=== PATIENT | female | born 1990 | race Caucasian/White ===

== ENCOUNTER 2016-10-17 22:23 | Emergency (ER) | payer BC ==
[2016-10-17 22:51] VITALS: BP 136/86
[2016-10-17] MEDS ORDERED: Ondansetron 4 MG/2 ML SDV IVPUSH ONE (22:52)
[2016-10-17] MEDS ORDERED: Sodium Chloride 0.9% 1,000 ML IV SCH (23:00)
[2016-10-17] MEDS: Sodium Chloride 0.9% 10 ML Syringe FLUSH PRN (23:24)
[2016-10-18] MEDS ORDERED: Metoclopramide 10 MG/2 ML SDV IVPUSH ONE (00:53)
[2016-10-18] MEDS ORDERED: Ketorolac 30 MG/ML SDV IVPUSH ONE (00:57)
[2016-10-18] MEDS ORDERED: Ketorolac 30 MG/ML SDV IVPUSH SCH (01:00)
[2016-10-18] MEDS ORDERED: Sodium Chloride 0.9% 1,000 ML IV SCH (01:00)
--- NOTE | 2016-10-18 01:47 | EDM.PDOC ---
ED HPI GENERAL MEDICAL PROBLEM - General Chief Complaint: Abdominal Pain Stated Complaint: LOWER RIGHT SIDE PAIN Time Seen by Provider: 10/17/16 22:44 Source of Information: Reports: Patient, RN Notes Reviewed - History of Present Illness INITIAL COMMENTS - FREE TEXT/NARRATIVE: 26 -year-old female comes in with nausea, right lower abdominal and right flank discomfort. This came on earlier in the day about 8-10 hours prior to arrival. The pain has been worsening with fairly severe discomfort right flank right lower abdomen on arrival to ED. She did have diarrhea initially that lasted about 1-2 hours. Appetite has been diminished the remainder of today. She did try eat some dinner around 4 hours ago. That did not cause further diarrhea but did increase the discomfort and nausea. She's had chills with this, no definite fever. Voiding symptomatology. She has had previous cholecystectomy but still does have her appendix. Right Lower Abdominal Pain Score (Numeric/FACES): 8 - Related Data Allergies Allergy/AdvReac Type Severity Reaction Status Date / Time azithromycin Allergy Mouth Sores Verified 10/17/16 22:32 [From Zithromax Z-Gerardo] cephalexin Allergy Redness Verified 10/17/16 22:32 milk Allergy Other Verified 10/17/16 22:32 peanut Allergy Other Verified 10/17/16 22:32 Penicillins Allergy Facial Verified 10/17/16 22:32 Swelling Pertussis Vaccines Allergy Cannot Verified 10/17/16 22:32 Remember Sulfa (Sulfonamide Allergy Hives Verified 10/17/16 22:32 Antibiotics) cefaclor [From Ceclor] AdvReac Joint Pain Verified 10/17/16 22:32 clarithromycin [From Biaxin] AdvReac Nausea and Verified 10/17/16 22:32 Vomiting eggs Allergy Other Uncoded 10/17/16 22:32 Home Meds: Home Meds PNV95/Ferrous Fumarate/FA [ Tablet] 1 tab PO DAILY 07/24/14 [History] Insulin Detemir [Levemir] 10 unit SUBCUT DAILY 01/02/15 [History] Ciprofloxacin HCl [Cipro] 500 mg PO BID #7 tablet 10/18/16 [Rx] Ondansetron [Zofran ODT] 4 mg PO Q6H PRN #7 tab.dis 10/18/16 [Rx] Past Medical History - Past Health History Medical/Surgical History: Denies Medical/Surgical History Social & Family History - Tobacco Use Smoking Status *Q: Never Smoker Years of Tobacco use: 10 Packs/Tins Daily: 1 Used Tobacco, but Quit: Yes Month Tobacco Last Used: 04/2014 Second Hand Smoke Exposure: No - Recreational Drug Use Recreational Drug Use: No ED ROS GENERAL - Review of Systems Review Of Systems: See Below Constitutional: Denies: Fever, Chills, Diaphoresis HEENT: Reports: No Symptoms Respiratory: Denies: Shortness of Breath, Cough Cardiovascular: Denies: Chest Pain GI/Abdominal: Reports: Abdominal Pain, Diarrhea, Nausea. Denies: Vomiting : Reports: No Symptoms Musculoskeletal: Reports: Back Pain Skin: Reports: No Symptoms (Primarily right flank area) Neurological: Reports: No Symptoms ED EXAM, GI/ABD - Physical Exam Exam: See Below General Appearance: Alert, Moderate Distress Eyes: Bilateral: Normal Appearance Throat/Mouth: Normal Inspection, Normal Oropharynx Head: No: Facial Swelling Neck: Supple, Full Range of Motion. No: Lymphadenopathy (L), Lymphadenopathy (R ) Respiratory/Chest: No Respiratory Distress, Lungs Clear, Normal Breath Sounds Cardiovascular: Tachycardia GI/Abdominal Exam: Soft, Rebound (Mild), Tender. No: Guarding (Right lower quadrant) Back Exam: CVA Tenderness (R) Extremities: Normal Inspection. No: Pedal Edema, Leg Pain Neurological: Alert, Oriented, No Motor/Sensory Deficits Skin Exam: Warm, Dry, Normal Color, No Rash Course - Vital Signs Last Recorded V/S: Last Vital Signs Temp 98.1 F 10/17/16 22:35 Pulse 113 H 10/17/16 22:35 Resp BP 136/86 10/17/16 22:35 Pulse Ox 97 10/17/16 22:35 - Orders/Labs/Meds Orders: Active Orders 24 hr Category Date Time Status Peripheral IV Care [RC] . DIRECTED Care 10/17/16 22:52 Active Abdomen Pelvis w Cont [CT] Stat Exams 10/18/16 00:54 Taken Sodium Chloride 0.9% [Normal Saline] 1,000 ml Med 10/18/16 01:00 Active IV ASDIRECTED Sodium Chloride 0.9% [Normal Saline] 1,000 ml Med 10/17/16 23:00 Active IV ONETIME Sodium Chloride 0.9% [Saline Flush] Med 10/17/16 22:52 Active 10 ml FLUSH ASDIRECTED PRN Peripheral IV Insertion Adult [OM.PC] Stat Oth 10/17/16 22:51 Ordered Medication Orders Sodium Chloride (Normal Saline) 1,000 mls @ 999 mls/hr IV ONETIME BLAKE Last Admin: 10/17/16 23:23 Dose: 999 mls/hr Sodium Chloride (Normal Saline) 1,000 mls @ 150 mls/hr IV ASDIRECTED BLAKE Last Admin: 10/18/16 01:07 Dose: 150 mls/hr Sodium Chloride (Saline Flush) 10 ml FLUSH ASDIRECTED PRN PRN Reason: Keep Vein Open Last Admin: 10/18/16 03:10 Dose: 10 ml Admin: 10/17/16 23:24 Dose: 10 ml Labs: Laboratory Tests 10/17/16 10/17/16 10/17/16 Range/Units 23:10 23:10 23:10 WBC 13.90 H (3.98-10.04) K/mm3 RBC 4.63 (3.98-5.22) M/mm3 Hgb 12.5 (11.2-15.7) gm/L Hct 39.1 (34.1-44.9) % MCV 84.4 (79.4-94.8) fl MCH 27.0 (25.6-32.2) pg MCHC 32.0 L (32.2-35.5) g/dl RDW Std Deviation 41.2 (36.4-46.3) fL Plt Count 400 H (182-369) K/mm3 MPV 9.0 L (9.4-12.3) fl Neut % (Auto) 67.4 (34.0-71.1) % Lymph % (Auto) 22.7 (19.3-51.7) % [place] % (Auto) 7.3 (4.7-12.5) % Eos % (Auto) 2.3 (0.7-5.8) Baso % (Auto) 0.2 (0.1-1.2) % Neut # (Auto) 9.35 H (1.56-6.13) K/mm3 Lymph # (Auto) 3.16 (1.18-3.74) K/mm3 [place] # (Auto) 1.02 H (0.24-0.36) K/mm3 Eos # (Auto) 0.32 (0.04-0.36) K/mm3 Baso # (Auto) 0.03 (0.01-0.08) K/mm3 Sodium 140 (136-145) mEq/L Potassium 3.8 (3.5-5.1) mEq/L Chloride 103 (98-107) mEq/L Carbon Dioxide 25 (21-32) mEq/L Anion Gap 15.8 H (5-15) BUN 17 (7-18) mg/dL Creatinine 0.7 (0.55-1.02) mg/dL Est Cr Clr Drug Dosing 113.01 mL/min Estimated GFR (MDRD) > 60 (>60) mL/min BUN/Creatinine Ratio 24.3 H (14-18) Glucose 116 H (74-106) mg/dL Calcium 9.0 (8.5-10.1) mg/dL Total Bilirubin 0.3 (0.2-1.0) mg/dL AST 15 (15-37) U/L ALT 37 (14-59) U/L Alkaline Phosphatase 174 H (46-116) U/L C-Reactive Protein 3.2 H* (<1.0) mg/dL Total Protein 8.0 (6.4-8.2) g/dl Albumin 3.6 (3.4-5.0) g/dl Globulin 4.4 gm/dL Albumin/Globulin Ratio 0.8 L (1-2) HCG, Qual (NEGATIVE) Urine Color (Yellow) Urine Appearance (Clear) Urine pH (5.0-8.0) Ur Specific [place] (1.005-1.030) Urine Protein (Negative) Urine Glucose (UA) (Negative) Urine Ketones (Negative) Urine Occult Blood (Negative) Urine Nitrite (Negative) Urine Bilirubin (Negative) Urine Urobilinogen (0.2-1.0) Ur Leukocyte Esterase (Negative) Urine RBC (0-5) /hpf Urine WBC (0-5) /hpf Ur Epithelial Cells (0-5) /hpf Urine Bacteria (FEW) /hpf Urine Mucus (FEW) /hpf Urine Yeast (NOT SEEN) 10/18/16 10/18/16 Range/Units 00:40 00:40 WBC (3.98-10.04) K/mm3 RBC (3.98-5.22) M/mm3 Hgb (11.2-15.7) gm/L Hct (34.1-44.9) % MCV (79.4-94.8) fl MCH (25.6-32.2) pg MCHC (32.2-35.5) g/dl RDW Std Deviation (36.4-46.3) fL Plt Count (182-369) K/mm3 MPV (9.4-12.3) fl Neut % (Auto) (34.0-71.1) % Lymph % (Auto) (19.3-51.7) % [place] % (Auto) (4.7-12.5) % Eos % (Auto) (0.7-5.8) Baso % (Auto) (0.1-1.2) % Neut # (Auto) (1.56-6.13) K/mm3 Lymph # (Auto) (1.18-3.74) K/mm3 [place] # (Auto) (0.24-0.36) K/mm3 Eos # (Auto) (0.04-0.36) K/mm3 Baso # (Auto) (0.01-0.08) K/mm3 Sodium (136-145) mEq/L Potassium (3.5-5.1) mEq/L Chloride (98-107) mEq/L Carbon Dioxide (21-32) mEq/L Anion Gap (5-15) BUN (7-18) mg/dL Creatinine (0.55-1.02) mg/dL Est Cr Clr Drug Dosing mL/min Estimated GFR (MDRD) (>60) mL/min BUN/Creatinine Ratio (14-18) Glucose (74-106) mg/dL Calcium (8.5-10.1) mg/dL Total Bilirubin (0.2-1.0) mg/dL AST (15-37) U/L ALT (14-59) U/L Alkaline Phosphatase (46-116) U/L C-Reactive Protein (<1.0) mg/dL Total Protein (6.4-8.2) g/dl Albumin (3.4-5.0) g/dl Globulin gm/dL Albumin/Globulin Ratio (1-2) HCG, Qual Negative (NEGATIVE) Urine Color Yellow (Yellow) Urine Appearance Slt cloudy H (Clear) Urine pH 6.5 (5.0-8.0) Ur Specific [place] 1.025 (1.005-1.030) Urine Protein Negative (Negative) Urine Glucose (UA) Negative (Negative) Urine Ketones Negative (Negative) Urine Occult Blood Negative (Negative) Urine Nitrite Negative (Negative) Urine Bilirubin Negative (Negative) Urine Urobilinogen 0.2 (0.2-1.0) Ur Leukocyte Esterase 2+ H (Negative) Urine RBC 0-5 (0-5) /hpf Urine WBC 10-20 H (0-5) /hpf Ur Epithelial Cells 10-20 H (0-5) /hpf Urine Bacteria Many H (FEW) /hpf Urine Mucus Not seen (FEW) /hpf Urine Yeast Not seen (NOT SEEN) Meds: Medications Generic Name Dose Route Start Last Admin Trade Name Freq PRN Reason Stop Dose Admin Sodium Chloride 1,000 mls @ 999 mls/hr 10/17/16 23:00 10/17/16 23:23 Normal Saline IV 999 mls/hr ONETIME BLAKE Administration Sodium Chloride 1,000 mls @ 150 mls/hr 10/18/16 01:00 10/18/16 01:07 Normal Saline IV 150 mls/hr ASDIRECTED BLAKE Administration Sodium Chloride 10 ml 10/17/16 22:52 10/18/16 03:10 Saline Flush FLUSH 10 ml ASDIRECTED PRN Administration Keep Vein Open Discontinued Medications Generic Name Dose Route Start Last Admin Trade Name Freq PRN Reason Stop Dose Admin Diatrizoate Meglum/Diatrizoate Sod 90 ml 10/18/16 02:42 10/18/16 03:10 Gastrografin 37% PO 10/18/16 02:43 90 ml ONETIME ONE Administration Iopamidol 125 ml 10/18/16 02:42 10/18/16 03:10 Isovue-300 (61%) IVPUSH 10/18/16 02:43 125 ml ONETIME ONE Administration Ketorolac Tromethamine 30 mg 10/18/16 01:00 Toradol IVPUSH ONETIME BLAKE Ketorolac Tromethamine 30 mg 10/18/16 00:57 10/18/16 01:12 Toradol IVPUSH 10/18/16 00:58 30 mg ONETIME ONE Administration Metoclopramide HCl 5 mg 10/18/16 00:53 10/18/16 01:09 Reglan IVPUSH 10/18/16 00:54 5 mg ONETIME ONE Administration Ondansetron HCl 4 mg 10/17/16 22:52 10/17/16 23:23 Zofran IVPUSH 10/17/16 22:53 4 mg ONETIME ONE Administration - Re-Assessments/Exams Free Text/Narrative Re-Assessment/Exam: 10/18/16 01:51 White blood count does show increased neutrophils, C-reactive protein is mildly elevated, on reexam she continues to be quite tender right lower quadrant and right flank. Situs cannot be ruled out on the basis of exam and therefore CT abdomen and pelvis will be done. 10/18/16 05:13 CT report did come back a while ago negative for appendicitis or other visible acute intra-abdominal or pelvic pathology. Patient does feel better after IV Zofran, Reglan and Toradol IV. We have also given IV fluid. Discharge instructions as documented Departure - Departure Time of Disposition: 03:42 Disposition: Home, Self-Care 01 Condition: Fair Clinical Impression: Abdominal pain Qualifiers: Abdominal location: right lower quadrant Qualified Code(s): R10.31 - Right lower quadrant pain Diarrhea Qualifiers: Diarrhea type: unspecified type Qualified Code(s): R19.7 - Diarrhea, unspecified - Discharge Information Prescriptions: Ciprofloxacin HCl [Cipro] 500 mg PO BID #7 tablet Ondansetron [Zofran ODT] 4 mg PO Q6H PRN #7 tab.dis PRN Reason: Nausea/Vomiting Instructions: Diarrhea, Adult, Abdominal Pain, Adult, [id number] Referrals: Daniela Amanda MD [Primary Care Provider] - Forms: ED Department Discharge, ED Return to Work/School Form Additional Instructions: Clear liquids until later today, cipro, 500 mg twice daily until gone, Zofran 4 mg ODT every 6-8 hours if needed for nausea or vomiting, probiotic twice daily, that is available OTC. Follow-up clinic if not back to normal within 1-2 days as expected, return to ED if symptoms worsening in any way - My Orders Last 24 Hours: My Active Orders 10/17/16 22:51 Peripheral IV Insertion Adult [OM.PC] Stat 10/17/16 22:52 Peripheral IV Care [RC] . DIRECTED Sodium Chloride 0.9% [Saline Flush] 10 ml FLUSH ASDIRECTED PRN 10/17/16 23:00 Sodium Chloride 0.9% [Normal Saline] 1,000 ml IV ONETIME 10/18/16 00:54 Abdomen Pelvis w Cont [CT] Stat 10/18/16 01:00 Sodium Chloride 0.9% [Normal Saline] 1,000 ml IV ASDIRECTED - Assessment/Plan Last 24 Hours: My Active Orders 10/17/16 22:51 Peripheral IV Insertion Adult [OM.PC] Stat 10/17/16 22:52 Peripheral IV Care [RC] . DIRECTED Sodium Chloride 0.9% [Saline Flush] 10 ml FLUSH ASDIRECTED PRN 10/17/16 23:00 Sodium Chloride 0.9% [Normal Saline] 1,000 ml IV ONETIME 10/18/16 00:54 Abdomen Pelvis w Cont [CT] Stat 10/18/16 01:00 Sodium Chloride 0.9% [Normal Saline] 1,000 ml IV ASDIRECTED
[2016-10-18] MEDS ORDERED: Diatrizoate Meglumine/Diatrizoate Sodium 37% 120 ML Bottle PO ONE (02:42)
[2016-10-18] MEDS ORDERED: Iopamidol 612 MG/ML 150 ML Bottle IVPUSH ONE (02:42)
[2016-10-18] MEDS: Sodium Chloride 0.9% 10 ML Syringe FLUSH PRN (03:10)
--- NOTE | 2016-10-18 07:00 | CT ---
CT abdomen and pelvis Technique: Multiple axial sections were obtained from above the dome of the diaphragm inferiorly through the pubic symphysis. Intravenous and oral contrast was utilized. Delayed images were also obtained through the bladder. Comparison: Previous CT abdomen and pelvis exam of 06/05/12. Findings: Small portion of the visualized lung bases shows nothing acute. Liver shows no focal parenchymal abnormality. Spleen appears within normal limits. Surgical clips noted from prior cholecystectomy. Adrenal glands show no nodule. Kidneys show symmetric contrast enhancement without hydronephrosis or mass. Pancreas is within normal limits. Aorta shows no aneurysmal dilatation. No retroperitoneal adenopathy or mesenteric abnormalities are seen. No pelvic mass or adenopathy is seen. No free fluid is seen. No inflammatory change is identified no bowel dilatation is seen. Appendix is seen which appears normal. Bony structures are within normal limits for the patient's age. Delayed images show contrast within the distal ureters and within the bladder. Impression: 1. No acute abnormality identified on CT study of the abdomen and pelvis. No significant change is seen from previous CT exam. Diagnostic code #2 I agree with preliminary report issued by [employer] ([facility] preliminary report dictated on 10/18/16, 4:29 AM Central Time)
== END 2016-10-18 03:48 | disposition home or self-care (01) ==
LOC: JD.ED 22:23
DX: R10.31 Right lower quadrant pain (principal); R19.7 Diarrhea, unspecified; Z87.891 Personal history of nicotine dependence; Z79.899 Other long term (current) drug therapy; Z88.1 Allergy status to other antibiotic agents; Z91.012 Allergy to eggs; Z88.0 Allergy status to penicillin; Z88.2 Allergy status to sulfonamides; Z91.011 Allergy to milk products; Z88.7 Allergy status to serum and vaccine; Z90.49 Acquired absence of other specified parts of digestive tract
CPT/HCPCS: 36415; 74177; 80053; 81001; 84703; 85025; 86140; 96361; 96374; 96375; 99284; J1885; J2405; J2765; J7040; J7050; Q9963; Q9967

== ENCOUNTER 2020-05-11 18:02 | Inpatient (IN) | payer MEDICAID ==
[2020-05-11] MEDS ORDERED: Ondansetron 4 MG/2 ML SDV IVPUSH PRN ×2 (18:18→21:52)
[2020-05-11] MEDS ORDERED: Nalbuphine 10 MG/1 ML Vial IVPUSH PRN (18:18)
[2020-05-11] MEDS ORDERED: Sodium Chloride 0.9% 10 ML Syringe FLUSH PRN (18:18)
[2020-05-11] MEDS ORDERED: diphenhydrAMINE 50 MG/ML SDV IVPUSH PRN (18:21)
[2020-05-11] MEDS ORDERED: Betamethasone Acetate/Betamethasone Sod Phosphate 30 MG/5 ML MDV IM ONE (18:22)
[2020-05-11] MEDS ORDERED: Oxytocin/Lactated Ringers 10 UNIT/1,000 ML BAG IV SCH ×2 (18:30)
--- NOTE | 2020-05-11 18:33 | PCM.LDHP ---
L&D History of Present Illness - General Date of Service: 05/11/20 Admit Problem/Dx: Patient Status Order with Admit Dx/Problem 05/11/20 18:18 Patient Status [ADT] Routine Admission Diagnosis/Problem Admission Diagnosis/Problem Abnormal test Source of Information: Patient History Limitations: Reports: No Limitations - History of Present Illness Introduction:: Patient is a 29 y/o at 36 0/7 wks who presents for IOL after abnormal testing. Has a history of GODMA2. Had her NST today which was non r eactive. BPP follow up only 06/18 (off for breathing and tone). Total score 4/10. Doing well otherwise. A little anxious - Related Data Allergies/Adverse Reactions: Allergies Allergy/AdvReac Type Severity Reaction Status Date / Time azithromycin Allergy Mouth Sores Verified 04/27/20 16:10 [From Zithromax Z-Gerardo] cephalexin Allergy Redness Verified 04/27/20 16:10 milk Allergy Other Verified 04/27/20 16:10 peanut Allergy Other Verified 04/27/20 16:10 Penicillins Allergy Facial Verified 04/27/20 16:10 Swelling Pertussis Vaccines Allergy Cannot Verified 04/27/20 16:10 Remember Sulfa (Sulfonamide Allergy Hives Verified 04/27/20 16:10 Antibiotics) cefaclor [From Ceclor] AdvReac Joint Pain Verified 04/27/20 16:10 clarithromycin [From Biaxin] AdvReac Nausea and Verified 04/27/20 16:10 Vomiting eggs Allergy Other Uncoded 10/17/16 22:32 Home Medications: Home Meds Pnv No.95/Ferrous Fum/Folic AC [ Tablet] 1 tab PO DAILY 07/24/14 [History] Insulin Glargine,Hum.Rec.Anlog [Lantus Solostar] 11 units SQ BEDTIME 04/27/20 [History] Past Medical History Genitourinary History: Reports: Renal Calculus SCALDER History: Reports: Endometriosis, : 2 Para: 1 LMP (Approximate): Psychiatric History: Reports: Anxiety Endocrine/Metabolic History: Reports: Diabetes, Gestational - Past Surgical History HEENT Surgical History: Reports: Tonsillectomy GI Surgical History: Reports: Cholecystectomy Social & Family History - Tobacco Use Tobacco Use Status *Q: Former Tobacco User - Alcohol Use Alcohol Use History: No - Recreational Drug Use Recreational Drug Use: No H&P Review of Systems - Review of Systems: Review Of Systems: See Below General: Reports: No Symptoms Pulmonary: Reports: No Symptoms Cardiovascular: Reports: No Symptoms Gastrointestinal: Reports: No Symptoms Genitourinary: Reports: No Symptoms Musculoskeletal: Reports: No Symptoms Psychiatric: Reports: Anxiety Neurological: Reports: No Symptoms L&D Exam - Exam Exam: See Below - Vital Signs Vital Signs: Last Vital Signs Temp 36.8 C 05/11/20 18:18 Pulse 98 05/11/20 18:18 Resp 18 05/11/20 18:18 BP 150/96 H 05/11/20 18:18 Pulse Ox 97 05/11/20 18:18 Weight: 125.191 kg - OB Specific Contraction Intensity: Irritability Movement: Active Heart Tones: Present Heart Tones per Min: 150 Heart Rate (FHR) Variability: Moderate (6-25 bmp) Presentation: Vertex - Cesar Score Cesar Score Cervix Position: Midposition Cesar Score Consistency: Soft Cesar Score Effacement: 51-70% Cesar Score Dilation: 1-2 cm Cesar Score 's Station: -3 Cesar Score Total: 6 - Exam General: Alert, Oriented, Cooperative Lungs: Clear to Auscultation, Normal Respiratory Effort Cardiovascular: Regular Rate, Regular Rhythm GI/Abdominal Exam: Soft, Non-Tender Genitourinary: Normal external exam Extremities: Normal Inspection Skin: Warm, Dry, Intact - Patient Data Result Diagrams: 05/11/20 18:33 05/11/20 18:33 - Problem List (1) 36 weeks gestation of SNOMED Code(s): 42223160 ICD Code: Z3A.36 - 36 WEEKS GESTATION OF Status: Acute Current Visit: Yes (2) Abnormal test SNOMED Code(s): 521207598, 441630133 ICD Code: O28.9 - UNSP ABNORMAL FINDINGS ON SCREENING OF MOTHER Status: Acute Current Visit: Yes (3) Mild preeclampsia SNOMED Code(s): 18391492 ICD Code: O14.00 - MILD TO MODERATE PRE-ECLAMPSIA, UNSPECIFIED TRIMESTER Status: Acute Current Visit: Yes Qualifiers: Trimester: third trimester Qualified Code(s): O14.03 - Mild to moderate pre-eclampsia, third trimester (4) Gestational diabetes mellitus in , insulin controlled SNOMED Code(s): 09098488 ICD Code: O24.414 - GESTATIONAL DIABETES IN , INSULIN CONTROLLED Status: Acute Current Visit: No (5) Group B Streptococcus carrier, +RV culture, currently SNOMED Code(s): 8659205431519, 727958941, 7242890308293 ICD Code: O99.820 - STREPTOCOCCUS B CARRIER STATE COMPLICATING Status: Acute Current Visit: No Problem List Initiated/Reviewed/Updated: Yes Orders Last 24hrs: Active Orders 24 hr Category Date Time Status Patient Status [ADT] Routine ADT 05/11/20 18:18 Ordered Blood Glucose Check, Bedside [RC] Q4H Care 05/11/20 18:21 Ordered Communication Order [RC] ASDIRECTED Care 05/11/20 18:18 Ordered Communication Order [RC] ASDIRECTED Care 05/11/20 18:18 Ordered Communication Order [RC] ASDIRECTED Care 05/11/20 18:18 Ordered Non Stress Test [RC] PER UNIT ROUTINE Care 05/11/20 18:18 Ordered Notify Provider [RC] ASDIRECTED Care 05/11/20 18:18 Ordered Notify Provider [RC] PRN Care 05/11/20 18:18 Ordered Peripheral IV Care [RC] . DIRECTED Care 05/11/20 18:19 Ordered Up ad Destiny [RC] ASDIRECTED Care 05/11/20 18:19 Ordered Vaginal Exam [RC] ASDIRECTED Care 05/11/20 18:18 Ordered Vital Signs [RC] ASDIRECTED Care 05/11/20 18:18 Ordered Regular Diet [DIET] Diet 05/11/20 Dinner Ordered ALANINE AMINOTRANSFERASE,ALT [CHEM] Routine Lab 05/11/20 18:23 Ordered ASPARTATE AMNIOTRANSFERASE,AST [CHEM] Routine Lab 05/11/20 18:23 Ordered CBC W/O DIFF,HEMOGRAM [HEME] Routine Lab 05/11/20 18:18 Ordered CORONAVIRUS COVID-19 SADIA [MOLEC] Stat Lab 05/11/20 18:20 Ordered CREATININE W/GFR [CHEM] Routine Lab 05/11/20 18:23 Ordered PROTEIN/CREATININE RATIO,URINE [URCHEM] Routine Lab 05/11/20 18:23 Ordered RAPID PLASMA REAGIN,RPR [CHEM] Routine Lab 05/11/20 18:18 Ordered TYPE AND SCREEN [BBK] Routine Lab 05/11/20 18:18 Ordered Lactated Ringers [Ringers, Lactated] 1,000 ml Med 05/11/20 18:30 Ordered IV ASDIRECTED Nalbuphine [Nubain] Med 05/11/20 18:18 Ordered 10 mg IVPUSH Q2H PRN Ondansetron [Zofran] Med 05/11/20 18:18 Ordered 4 mg IVPUSH Q4H PRN Oxytocin/Lactated Ringers [Pitocin in LR 10 Units/1,000 Med 05/11/20 18:30 Ordered ML] 10 unit in 1,000 ml IV .CONTINUOUS Oxytocin/Lactated Ringers [Pitocin in LR 10 Units/1,000 Med 05/11/20 18:30 Ordered ML] 10 unit in 1,000 ml IV TITRATE Sodium Chloride 0.9% [Saline Flush] Med 05/11/20 18:18 Ordered 10 ml FLUSH ASDIRECTED PRN Vancomycin [Vancocin] 1 gm Med 05/11/20 21:00 Ordered Sodium Chloride 0.9% [Normal Saline (AdvBag)] 250 ml IV Q12HR diphenhydrAMINE [Benadryl] Med 05/11/20 18:21 Ordered 25 mg IVPUSH Q8H PRN Electronic Heart Tones Internal [WOMSER] Per Unit Oth 05/11/20 18:18 Ordered Routine Peripheral IV Insertion Adult [OM.PC] Routine Oth 05/11/20 18:18 Ordered Resuscitation Status Routine Resus Stat 05/11/20 18:18 Ordered Medication Orders Diphenhydramine HCl (Benadryl) 25 mg IVPUSH Q8H PRN PRN Reason: Itching Oxytocin/Lactated Ringer's (Pitocin In Lr 10 Units/1,000 Ml) 10 unit in 1,000 mls @ 12 mls/hr IV TITRATE BLAKE; Protocol Vancomycin HCl 1 gm/ Sodium (Chloride) 250 mls @ 167 mls/hr IV Q12HR BLAKE Oxytocin/Lactated Ringer's (Pitocin In Lr 10 Units/1,000 Ml) 10 unit in 1,000 mls @ 500 mls/hr IV .CONTINUOUS BLAKE Lactated Ringer's (Ringers, Lactated) 1,000 mls @ 40 mls/hr IV ASDIRECTED BLAKE Nalbuphine HCl (Nubain) 10 mg IVPUSH Q2H PRN PRN Reason: Pain Ondansetron HCl (Zofran) 4 mg IVPUSH Q4H PRN PRN Reason: Nausea/Vomiting Sodium Chloride (Saline Flush) 10 ml FLUSH ASDIRECTED PRN PRN Reason: Keep Vein Open Assessment/Plan Comment:: Abnormal testing in clinic today. Non reactive NST adn BPP only 4/8. Total score 4/10. Given gestational age recommendations for delivery * Labs done * BP's initially now mild range as well. Labs normal, but elevated protein to c reatinine ratio. Diagnosis of preeclampsia without severe features * Blood sugars q4 in early labor. Q2 in active. * GBS positive, sensitivities done today, but given multiple allergies will proceed with Vancomycin * Pitocin for IOL. AROM when able. * Betamethasone now
[2020-05-11] MEDS: Lactated Ringers 1,000 ML IV SCH ×2 (18:45→22:28)
--- NOTE | 2020-05-11 20:57 | PCM.PREANE ---
Preanesthetic Assessment - Procedure Proposed Procedure: Epidural - Anesthesia/Transfusion/Family Hx Anesthesia History: Prior Anesthesia Without Reaction Family History of Anesthesia Reaction: No Transfusion History: No Prior Transfusion(s) Intubation History: Unknown - Review of Systems General: No Symptoms Pulmonary: No Symptoms (Former smoker: quit September 2019) Cardiovascular: No Symptoms (Mild preclampsia), Edema (minimal) Gastrointestinal: No Symptoms (GERD) Neurological: No Symptoms Other: Reports: Diabetes (Gestational DM:2030 =127), Anxiety - Physical Assessment NPO Status Date: 05/11/20 NPO Status Time: 18:30 Vital Signs: Last Vital Signs Temp 36.8 C 05/11/20 18:18 Pulse 98 05/11/20 18:18 Resp 18 05/11/20 18:18 BP 150/96 H 05/11/20 18:18 Pulse Ox 97 05/11/20 18:18 Height: 1.68 m Weight: 125.191 kg ASA Class: 3 Mental Status: Alert & Oriented x3 Airway Class: Mallampati = 2 Dentition: Reports: Normal Dentition (removed tongue piercing), Caries Thyro-Mental Finger Breadths: 3 Mouth Opening Finger Breadths: 3 ROM/Head Extension: Full Lungs: Clear to Auscultation, Normal Respiratory Effort Cardiovascular: Regular Rate, Regular Rhythm, No Murmurs - Lab Values: Laboratory Last Values WBC 13.67 K/mm3 (3.98-10.04) H 05/11/20 18:33 RBC 4.55 M/mm3 (3.98-5.22) 05/11/20 18:33 Hgb 12.3 gm/dl (11.2-15.7) 05/11/20 18:33 Hct 38.0 % (34.1-44.9) 05/11/20 18:33 MCV 83.5 fl (79.4-94.8) 05/11/20 18:33 MCH 27.0 pg (25.6-32.2) 05/11/20 18:33 MCHC 32.4 g/dl (32.2-35.5) 05/11/20 18:33 RDW Std Deviation 42.1 fL (36.4-46.3) 05/11/20 18:33 Plt Count 378 K/mm3 (182-369) H 05/11/20 18:33 MPV 10.0 fl (9.4-12.3) 05/11/20 18:33 Creatinine 0.7 mg/dL (0.55-1.02) 05/11/20 18:33 Est Cr Clr Drug Dosing 110.01 mL/min 05/11/20 18:33 Estimated GFR (MDRD) > 60 mL/min (>60) 05/11/20 18:33 AST 15 U/L (15-37) 05/11/20 18:33 ALT 19 U/L (14-59) 05/11/20 18:33 Ur Random Creatinine 33.0 mg/dL (30.0-125.0) 05/11/20 18:25 U Random Total Protein 24.2 mg/dL (0.0-11.8) H 05/11/20 18:25 Protein/Creatinin Ratio 733.3 mg/g (0-149) H 05/11/20 18:25 RPR Non-reactive (NONREACTIVE) 05/11/20 18:33 SARS-CoV-2 RNA (SADIA) Negative (NEGATIVE) 05/11/20 18:15 Blood Type O POSITIVE 05/11/20 18:33 Gel Antibody Screen Negative 05/11/20 18:33 Above labs reviewed and noted and within acceptable ranges to proceed with epidural. - Allergies Allergies/Adverse Reactions: Allergies Allergy/AdvReac Type Severity Reaction Status Date / Time azithromycin Allergy Mouth Sores Verified 04/27/20 16:10 [From Zithromax Z-Gerardo] cephalexin Allergy Redness Verified 04/27/20 16:10 milk Allergy Other Verified 04/27/20 16:10 peanut Allergy Other Verified 04/27/20 16:10 Penicillins Allergy Facial Verified 04/27/20 16:10 Swelling Pertussis Vaccines Allergy Cannot Verified 04/27/20 16:10 Remember Sulfa (Sulfonamide Allergy Hives Verified 04/27/20 16:10 Antibiotics) cefaclor [From Ceclor] AdvReac Joint Pain Verified 04/27/20 16:10 clarithromycin [From Biaxin] AdvReac Nausea and Verified 04/27/20 16:10 Vomiting eggs Allergy Other Uncoded 10/17/16 22:32 - Anesthesia Plan Pre-Op Medication Ordered: None - Acknowledgements Anesthesia Type Planned: Epidural Pt an Appropriate Candidate for the Planned Anesthesia: Yes Alternatives and Risks of Anesthesia Discussed w Pt/Guardian: Yes Pt/Guardian Understands and Agrees with Anesthesia Plan: Yes PreAnesthesia Questionnaire - Past Health History Medical/Surgical History: Denies Medical/Surgical History Genitourinary History: Reports: Renal Calculus RN CLINICAL TRIALS History: Reports: Endometriosis, Psychiatric History: Reports: Anxiety Endocrine/Metabolic History: Reports: Diabetes, Gestational - Past Surgical History HEENT Surgical History: Reports: Tonsillectomy GI Surgical History: Reports: Cholecystectomy - SUBSTANCE USE Tobacco Use Status *Q: Former Tobacco User Tobacco Use Within Last Twelve Months: Cigarettes Second Hand Smoke Exposure: No Recreational Drug Use History: No - HOME MEDS Home Medications: Home Meds Pnv No.95/Ferrous Fum/Folic AC [ Tablet] 1 tab PO DAILY 07/24/14 [History] Insulin Glargine,Hum.Rec.Anlog [Lantus Solostar] 11 units SQ BEDTIME 04/27/20 [History] - CURRENT (IN HOUSE) MEDS Current Meds: Current Medications Diphenhydramine HCl (Benadryl) 25 mg IVPUSH Q8H PRN PRN Reason: Itching Last Admin: 05/11/20 18:45 Dose: 25 mg Documented by: Oxytocin/Lactated Ringer's (Pitocin In Lr 10 Units/1,000 Ml) 10 unit in 1,000 mls @ 12 mls/hr IV TITRATE BLAKE; Protocol Last Admin: 05/11/20 20:01 Dose: 2 munits/min, 12 mls/hr Documented by: Vancomycin HCl 1 gm/ Sodium (Chloride) 250 mls @ 167 mls/hr IV Q12HR BLAKE Last Admin: 05/11/20 19:58 Dose: 167 mls/hr Documented by: Oxytocin/Lactated Ringer's (Pitocin In Lr 10 Units/1,000 Ml) 10 unit in 1,000 mls @ 500 mls/hr IV .CONTINUOUS BLAKE Lactated Ringer's (Ringers, Lactated) 1,000 mls @ 40 mls/hr IV ASDIRECTED BLAKE Last Admin: 05/11/20 18:45 Dose: 40 mls/hr Documented by: Nalbuphine HCl (Nubain) 10 mg IVPUSH Q2H PRN PRN Reason: Pain Ondansetron HCl (Zofran) 4 mg IVPUSH Q4H PRN PRN Reason: Nausea/Vomiting Sodium Chloride (Saline Flush) 10 ml FLUSH ASDIRECTED PRN PRN Reason: Keep Vein Open Discontinued Medications Betamethasone Acet/Betameth SodPhos (Celestone Soluspan 6 Mg/Ml) 12 mg IM ONETIME ONE Stop: 05/11/20 18:23 Last Admin: 05/11/20 18:32 Dose: 12 mg Documented by:
[2020-05-11] MEDS ORDERED: fentaNYL 100 MCG/2 ML SDV ONE (21:52)
[2020-05-11] MEDS ORDERED: ePHEDrine 50 MG/ML SDV IVPUSH PRN (21:52)
[2020-05-11] MEDS ORDERED: fentaNYL 100 MCG/2 ML SDV EPIDUR PRN (21:52)
[2020-05-11] MEDS: Bupivacaine/fentaNYL/NS 100 ML Bag EPIDUR SCH (22:00)
[2020-05-12] MEDS ORDERED: Bupivacaine 0.25% 10 ML SDV ONE
--- NOTE | 2020-05-12 01:26 | PCM.PNLD ---
Labor Progress Note - VS & Meds Vital Signs: Last Vital Signs Temp 36.8 C 05/11/20 18:18 Pulse 98 05/11/20 18:18 Resp 18 05/11/20 18:18 BP 150/96 H 05/11/20 18:18 Pulse Ox 97 05/11/20 18:18 Active Medications: Current Medications Diphenhydramine HCl (Benadryl) 25 mg IVPUSH Q8H PRN PRN Reason: Itching Last Admin: 05/11/20 18:45 Dose: 25 mg Documented by: Ephedrine Sulfate (Ephedrine Sulfate) 5 mg IVPUSH ASDIRECTED PRN PRN Reason: Hypotension Fentanyl (Sublimaze) 100 mcg EPIDUR Q3H PRN PRN Reason: Pain Fentanyl/Bupivacaine HCl (Fentanyl/Bupivacaine/Ns 2 Mcg-0.125% 100 Ml) 100 ml EPIDUR ASDIRECTED BLAKE Last Admin: 05/11/20 22:00 Dose: 100 ml Documented by: Oxytocin/Lactated Ringer's (Pitocin In Lr 10 Units/1,000 Ml) 10 unit in 1,000 mls @ 12 mls/hr IV TITRATE BLAKE; Protocol Last Admin: 05/11/20 20:01 Dose: 2 munits/min, 12 mls/hr Documented by: Vancomycin HCl 1 gm/ Sodium (Chloride) 250 mls @ 167 mls/hr IV Q12HR BLAKE Last Admin: 05/11/20 19:58 Dose: 167 mls/hr Documented by: Oxytocin/Lactated Ringer's (Pitocin In Lr 10 Units/1,000 Ml) 10 unit in 1,000 mls @ 500 mls/hr IV .CONTINUOUS BLAKE Lactated Ringer's (Ringers, Lactated) 1,000 mls @ 40 mls/hr IV ASDIRECTED BLAKE Last Admin: 05/11/20 22:28 Dose: 40 mls/hr Documented by: Nalbuphine HCl (Nubain) 10 mg IVPUSH Q2H PRN PRN Reason: Pain Ondansetron HCl (Zofran) 4 mg IVPUSH Q4H PRN PRN Reason: Nausea/Vomiting Ondansetron HCl (Zofran) 4 mg IVPUSH ONETIME PRN PRN Reason: Nausea/Vomiting Sodium Chloride (Saline Flush) 10 ml FLUSH ASDIRECTED PRN PRN Reason: Keep Vein Open Discontinued Medications Betamethasone Acet/Betameth SodPhos (Celestone Soluspan 6 Mg/Ml) 12 mg IM ONETIME ONE Stop: 05/11/20 18:23 Last Admin: 05/11/20 18:32 Dose: 12 mg Documented by: Fentanyl (Sublimaze) Confirm Administered Dose 100 mcg .ROUTE .STK-MED ONE Stop: 05/11/20 21:53 Last Admin: 05/11/20 21:56 Dose: 100 mcg Documented by: Miscellaneous Medication (Phenylephrine 1 Mg/10 Ml-Ns) 0 mg IVPUSH ONETIME ONE Stop: 05/11/20 21:53 - Uterine Contractions Uterine Monitoring Mode: External Byram Contraction Intensity: Mild to Moderate Uterine Resting Tone: Soft - Monitoring Monitor Mode: External Ultrasound Heart Rate (FHR) Baseline: 145 Heart Rate (FHR) Variability: Moderate (6-25 bmp) Accelerations: Absent Decelerations: Late, Intermittent (<50% x 20 min) Strip Review: Category II - Labor Progress (Free Text) Labor Progress: Patient received her epidural around 0. Had pitocin up to 6, but with some runs of late decelerations. Had RN drop pitocin to 2. SVE with change to 3-4. AROM done with release of clear fluid. Will continue to slowly augment as able. BP's normal since epidural. Continue to monitor. Most recent blood sugar 117. Continue to monitor closely. Patient aware of all above findings, particularly tracing findings. Aware that if concerns for decelerations/abnormalities this can be need for section. Henrietta Stevenson MD
[2020-05-12] MEDS: Bupivacaine/fentaNYL/NS 100 ML Bag EPIDUR SCH (06:04)
--- NOTE | 2020-05-12 07:06 | PCM.DEL ---
L & D Note - General Info Date of Service: 05/12/20 - Delivery Note Labor: Induced by ARM, Induced by Oxytocin Delivery Outcome: Livebirth Infant Delivery Method: Spontaneous Vaginal Delivery-Single Infant Delivery Mode: Spontaneous Presentation: Right Occiput Anterior (LINDA) Nuchal Cord: Present, Reduced Anesthesia Type: Epidural Amniotic Fluid Description: Clear Episiotomy Type: None Laceration: None Placenta: Intact, Spontaneous Cord: 3 Vessels Estimated Blood Loss: 150 Resuscitation Needed: Yes : Bulb Syringe, Stimulated, Warmed, [place] Used, Warmer Used Delivery Comments (Free Text/Narrative):: Patient found to be complete and began pushing. With maternal pushing effort head delivered by LINDA presentation. Nuchal cord present and reduced. With gentle downward traction shoulders and body delivered. Infant placed on maternal abdomen. Cord clamped and cut. Baby taken to warmer for assessment. Cord segment obtained for cord gas. Cord blood obtained. Placenta allowed time to separate and almost completely expelled, but had some membranes trailing into uterus which were grasped with a rings and teased out. Inspection showed it to be complete. No lacerations noted of the perineum. - General Info Date of Service: 05/12/20 - Patient Data Vitals - Most Recent: Last Vital Signs Temp 36.8 C 05/11/20 18:18 Pulse 98 05/11/20 18:18 Resp 18 05/11/20 18:18 BP 150/96 H 05/11/20 18:18 Pulse Ox 97 05/11/20 18:18 Weight - Most Recent: 125.191 kg - Problem List & Annotations (1) 36 weeks gestation of SNOMED Code(s): 46722117 Code(s): Z3A.36 - 36 WEEKS GESTATION OF Status: Acute Current Visit: Yes (2) Abnormal test SNOMED Code(s): 355972005, 799791360 Code(s): O28.9 - UNSP ABNORMAL FINDINGS ON SCREENING OF MOTHER Status: Acute Current Visit: Yes (3) Mild preeclampsia SNOMED Code(s): 93345974 Code(s): O14.00 - MILD TO MODERATE PRE-ECLAMPSIA, UNSPECIFIED TRIMESTER Status: Acute Current Visit: Yes Qualifiers: Trimester: third trimester Qualified Code(s): O14.03 - Mild to moderate pre-eclampsia, third trimester (4) Gestational diabetes mellitus in , insulin controlled SNOMED Code(s): 75939194 Code(s): O24.414 - GESTATIONAL DIABETES IN , INSULIN CONTROLLED Status: Acute Current Visit: No (5) Group B Streptococcus carrier, +RV culture, currently SNOMED Code(s): 0707016401786, 815014054, 7687060022978 Code(s): O99.820 - STREPTOCOCCUS B CARRIER STATE COMPLICATING Status: Acute Current Visit: No (6) Vaginal delivery SNOMED Code(s): 527326921 Code(s): O80 - ENCOUNTER FOR FULL-TERM UNCOMPLICATED DELIVERY Status: Acute Current Visit: Yes - Problem List Review Problem List Initiated/Reviewed/Updated: Yes - My Orders Last 24 Hours: My Active Orders 05/11/20 Dinner Regular Diet [DIET] 05/11/20 18:18 Patient Status [ADT] Routine Communication Order [RC] ASDIRECTED Communication Order [RC] ASDIRECTED Communication Order [RC] ASDIRECTED Notify Provider [RC] ASDIRECTED Notify Provider [RC] PRN Vital Signs [RC] ASDIRECTED Nalbuphine [Nubain] 10 mg IVPUSH Q2H PRN Ondansetron [Zofran] 4 mg IVPUSH Q4H PRN Sodium Chloride 0.9% [Saline Flush] 10 ml FLUSH ASDIRECTED PRN Electronic Heart Tones Internal [WOMSER] Per Unit Routine Peripheral IV Insertion Adult [OM.PC] Routine Resuscitation Status Routine 05/11/20 18:19 Peripheral IV Care [RC] . DIRECTED Up ad Destiny [RC] ASDIRECTED 05/11/20 18:21 Blood Glucose Check, Bedside [RC] Q4H diphenhydrAMINE [Benadryl] 25 mg IVPUSH Q8H PRN 05/11/20 18:30 Lactated Ringers [Ringers, Lactated] 1,000 ml IV ASDIRECTED Oxytocin/Lactated Ringers [Pitocin in LR 10 Units/1,000 ML] 10 unit in 1,000 ml IV .CONTINUOUS Oxytocin/Lactated Ringers [Pitocin in LR 10 Units/1,000 ML] 10 unit in 1,000 ml IV TITRATE 05/11/20 18:33 TYPE AND SCREEN [BBK] Routine 05/11/20 21:00 Vancomycin [Vancocin] 1 gm Sodium Chloride 0.9% [Normal Saline (AdvBag)] 250 ml IV Q12HR - Assessment Assessment:: PPD#0 - Plan Plan:: * Routine cares * Breast feeding * Blood sugar fasting tomorrow AM for pt, 2hr GTT at 6 weeks * Monitor BP's closely * Discharge home in 2 days
[2020-05-12] MEDS ORDERED: Benzocaine/Menthol 20%-0.5% Spray 56 GM Canister TOP PRN (07:45)
[2020-05-12] MEDS ORDERED: Docusate Sodium 100 MG Cap PO PRN (07:45)
[2020-05-12] MEDS ORDERED: Acetaminophen 325 MG Tab PO PRN (07:45)
[2020-05-12] MEDS ORDERED: Witch Hazel Medicated Pads 40/Jar TOP PRN (07:45)
[2020-05-12] MEDS: Ibuprofen 600 MG Tab PO PRN ×2 (09:35→17:04)
[2020-05-13] MEDS: Ibuprofen 600 MG Tab PO PRN ×2 (00:17→23:40)
--- NOTE | 2020-05-13 07:03 | PCM.PNPP ---
- General Info Date of Service: 05/13/20 Functional Status: Reports: Pain Controlled, Tolerating Diet, Ambulating, Urinating - Review of Systems General: Reports: No Symptoms Pulmonary: Reports: No Symptoms Cardiovascular: Reports: No Symptoms Gastrointestinal: Reports: No Symptoms Genitourinary: Reports: No Symptoms Musculoskeletal: Reports: No Symptoms Neurological: Reports: No Symptoms - Patient Data Vital Signs - Most Recent: Last Vital Signs Temp 36.5 C 05/13/20 03:08 Pulse 60 05/13/20 03:08 Resp 16 05/13/20 03:08 BP 140/86 05/13/20 03:08 Pulse Ox 97 05/13/20 03:08 Weight - Most Recent: 125.191 kg I&O - Last 24 Hours: Intake & Output 05/12/20 05/13/20 05/13/20 22:59 06:59 14:59 Intake Total 120 Balance 120 Lab Results - Last 24 Hours: Laboratory Results - last 24 hr 05/13/20 Range/Units 05:05 POC Glucose 85 (70-105) mg/dL Med Orders - Current: Current Medications Acetaminophen (Tylenol) 650 mg PO Q4H PRN PRN Reason: mild pain or fever Last Admin: 05/12/20 21:37 Dose: 650 mg Documented by: Benzocaine/Menthol (Dermoplast Pain Relief Bohannon) 0 gm TOP ASDIRECTED PRN PRN Reason: Perineal Comfort Measure Last Admin: 05/12/20 09:36 Dose: 1 can Documented by: Docusate Sodium (Colace) 100 mg PO BID PRN PRN Reason: Constipation Ibuprofen (Motrin) 600 mg PO Q6H PRN PRN Reason: Mild pain or fever Last Admin: 05/13/20 00:17 Dose: 600 mg Documented by: Emre Colvin (Reece) 1 pad TOP ASDIRECTED PRN PRN Reason: Perineal Comfort Measure Last Admin: 05/12/20 09:36 Dose: 1 tub Documented by: Discontinued Medications Betamethasone Acet/Betameth SodPhos (Celestone Soluspan 6 Mg/Ml) 12 mg IM ONETIME ONE Stop: 05/11/20 18:23 Last Admin: 05/11/20 18:32 Dose: 12 mg Documented by: Bupivacaine HCl (Sensorcaine-Mpf 0.25%) 10 ml .ROUTE .STK-MED ONE Stop: 05/12/20 00:01 Diphenhydramine HCl (Benadryl) 25 mg IVPUSH Q8H PRN PRN Reason: Itching Last Admin: 05/11/20 18:45 Dose: 25 mg Documented by: Ephedrine Sulfate (Ephedrine Sulfate) 5 mg IVPUSH ASDIRECTED PRN PRN Reason: Hypotension Fentanyl (Sublimaze) Confirm Administered Dose 100 mcg .ROUTE .STK-MED ONE Stop: 05/11/20 21:53 Last Admin: 05/11/20 21:56 Dose: 100 mcg Documented by: Fentanyl (Sublimaze) 100 mcg EPIDUR Q3H PRN PRN Reason: Pain Fentanyl/Bupivacaine HCl (Fentanyl/Bupivacaine/Ns 2 Mcg-0.125% 100 Ml) 100 ml EPIDUR ASDIRECTED [facility] Last Admin: 05/12/20 06:04 Dose: 100 ml Documented by: Oxytocin/Lactated Ringer's (Pitocin In Lr 10 Units/1,000 Ml) 10 unit in 1,000 mls @ 12 mls/hr IV TITRATE BLAKE; Protocol Last Titration: 05/12/20 02:15 Dose: 0 munits/min, 0 mls/hr Documented by: Vancomycin HCl 1 gm/ Sodium (Chloride) 250 mls @ 167 mls/hr IV Q12HR [facility] Last Admin: 05/11/20 19:58 Dose: 167 mls/hr Documented by: Oxytocin/Lactated Ringer's (Pitocin In Lr 10 Units/1,000 Ml) 10 unit in 1,000 mls @ 500 mls/hr IV .CONTINUOUS BLAKE Lactated Ringer's (Ringers, Lactated) 1,000 mls @ 40 mls/hr IV ASDIRECTED [facility] Last Admin: 05/11/20 22:28 Dose: 40 mls/hr Documented by: Miscellaneous Medication (Phenylephrine 1 Mg/10 Ml-Ns) 0 mg IVPUSH ONETIME ONE Stop: 05/11/20 21:53 Last Admin: 05/12/20 04:10 Dose: Not Given Documented by: Nalbuphine HCl (Nubain) 10 mg IVPUSH Q2H PRN PRN Reason: Pain Ondansetron HCl (Zofran) 4 mg IVPUSH Q4H PRN PRN Reason: Nausea/Vomiting Ondansetron HCl (Zofran) 4 mg IVPUSH ONETIME PRN PRN Reason: Nausea/Vomiting Sodium Chloride (Saline Flush) 10 ml FLUSH ASDIRECTED PRN PRN Reason: Keep Vein Open - Interaction Disposition, : in Room with Family Interaction: Holding Infant Feeding: Attempted ; Nursed Fair/Poor Support Person: Significant Other - Recovery Exam Fundal Tone: Firm Fundal Level: 1 Fingerbreadths Below Umbilicus Fundal Placement: Midline Lochia Amount: Small Lochia Color: Rubra/Red Perineum Description: Intact, Minimal Bruising/Swelling Episiotomy/Laceration: None Bladder Status: Voiding Urinary Elimination: Voided - Exam General: Alert, Oriented, Cooperative GI/Abdominal Exam: Soft, Non-Tender Extremities: Normal Inspection Skin: Warm, Dry, Intact - Problem List & Annotations (1) 36 weeks gestation of SNOMED Code(s): 35829974 Code(s): Z3A.36 - 36 WEEKS GESTATION OF Status: Acute Current Visit: Yes (2) Abnormal test SNOMED Code(s): 935920924, 141089991 Code(s): O28.9 - UNSP ABNORMAL FINDINGS ON SCREENING OF MOTHER Status: Acute Current Visit: Yes (3) Mild preeclampsia SNOMED Code(s): 45070980 Code(s): O14.00 - MILD TO MODERATE PRE-ECLAMPSIA, UNSPECIFIED TRIMESTER Status: Acute Current Visit: Yes Qualifiers: Trimester: third trimester Qualified Code(s): O14.03 - Mild to moderate pre-eclampsia, third trimester (4) Gestational diabetes mellitus in , insulin controlled SNOMED Code(s): 10474341 Code(s): O24.414 - GESTATIONAL DIABETES IN , INSULIN CONTROLLED Status: Acute Current Visit: No (5) Group B Streptococcus carrier, +RV culture, currently SNOMED Code(s): 0757406982017, 223061285, 3859408018978 Code(s): O99.820 - STREPTOCOCCUS B CARRIER STATE COMPLICATING Status: Acute Current Visit: No (6) Vaginal delivery SNOMED Code(s): 881667530 Code(s): O80 - ENCOUNTER FOR FULL-TERM UNCOMPLICATED DELIVERY Status: Acute Current Visit: Yes - Problem List Review Problem List Initiated/Reviewed/Updated: Yes - My Orders Last 24 Hours: My Active Orders 05/12/20 Breakfast Regular Diet [DIET] 05/12/20 07:45 Acetaminophen [TylenoL] 650 mg PO Q4H PRN Benzocaine/Menthol [Dermoplast Pain Relief [place]] See Dose Instructions TOP ASDIRECTED PRN Docusate Sodium [Colace] 100 mg PO BID PRN Ibuprofen [Motrin] 600 mg PO Q6H PRN witch Geetha [Tucks] 1 pad TOP ASDIRECTED PRN Heat Therapy [OM.PC] PRN 05/12/20 07:45 Activity as Tolerated [RC] PER UNIT ROUTINE Up ad Destiny [RC] ASDIRECTED Vital Signs [RC] ,15,,03 Assess Lochia [WOMSER] Per Unit Routine Assess Uterine Involution [WOMSER] Per Unit Routine Breast Pump [WOMSER] Per Unit Routine Ice Therapy [OM.PC] Per Unit Routine Perineal Care [OM.PC] Per Unit Routine Peripheral IV Discontinue [OM.PC] Routine Sitz Bath [OM.PC] Per Unit Routine 05/13/20 05:00 Blood Glucose Check, Bedside [RC] ONETIME 05/13/20 07:45 Heat Therapy [OM.PC] PRN - Assessment Assessment:: PPD#1 - Plan Plan:: * Routine cares * Breast feeding * Fasting blood sugar this AM normal, 2hr GTT at 6 weeks * Monitor BP's closely, have been mostly normal to few low mild range. Will need BP check within 1 week from discharge * Discharge home tomorrow
--- NOTE | 2020-05-13 11:36 | PCM48HPAN ---
Post Anesthesia Note - EVALUATION WITHIN 48HRS OF ANESTHETIC Vital Signs in Normal Range: Yes Patient Participated in Evaluation: Yes Respiratory Function Stable: Yes Airway Patent: Yes Cardiovascular Function Stable: Yes Hydration Status Stable: Yes Pain Control Satisfactory: Yes Nausea and Vomiting Control Satisfactory: Yes Mental Status Recovered: Yes Vital Signs: Last Vital Signs Temp 36.4 C 05/13/20 07:46 Pulse 68 05/13/20 07:47 Resp 16 05/13/20 07:46 BP 146/84 H 05/13/20 07:46 Pulse Ox 98 05/13/20 07:47
[2020-05-13] MEDS ORDERED: Sertraline 50 MG Tab PO ONE (11:51)
--- NOTE | 2020-05-14 06:47 | PCM.PNPP ---
- General Info Date of Service: 05/14/20 Functional Status: Reports: Pain Controlled, Tolerating Diet, Ambulating, Urinating - Review of Systems General: Reports: No Symptoms Pulmonary: Reports: No Symptoms Cardiovascular: Reports: No Symptoms Gastrointestinal: Reports: No Symptoms Genitourinary: Reports: No Symptoms Musculoskeletal: Reports: No Symptoms Neurological: Reports: No Symptoms - Patient Data Vital Signs - Most Recent: Last Vital Signs Temp 36.8 C 05/14/20 04:29 Pulse 58 L 05/14/20 04:29 Resp 18 05/14/20 04:29 BP 149/98 H 05/14/20 04:51 Pulse Ox 98 05/14/20 04:29 Weight - Most Recent: 125.191 kg I&O - Last 24 Hours: Intake & Output 05/13/20 05/13/20 05/14/20 14:59 22:59 06:59 Intake Total 120 120 Balance 120 120 Med Orders - Current: Current Medications Acetaminophen (Tylenol) 650 mg PO Q4H PRN PRN Reason: mild pain or fever Last Admin: 05/12/20 21:37 Dose: 650 mg Documented by: Benzocaine/Menthol (Dermoplast Pain Relief [place]) 0 gm TOP ASDIRECTED PRN PRN Reason: Perineal Comfort Measure Last Admin: 05/12/20 09:36 Dose: 1 can Documented by: Docusate Sodium (Colace) 100 mg PO BID PRN PRN Reason: Constipation Last Admin: 05/13/20 23:41 Dose: 100 mg Documented by: Ibuprofen (Motrin) 600 mg PO Q6H PRN PRN Reason: Mild pain or fever Last Admin: 05/13/20 23:40 Dose: 600 mg Documented by: Emre Colvin (Tucks) 1 pad TOP ASDIRECTED PRN PRN Reason: Perineal Comfort Measure Last Admin: 05/12/20 09:36 Dose: 1 tub Documented by: Discontinued Medications Betamethasone Acet/Betameth SodPhos (Celestone Soluspan 6 Mg/Ml) 12 mg IM ONETIME ONE Stop: 05/11/20 18:23 Last Admin: 05/11/20 18:32 Dose: 12 mg Documented by: Bupivacaine HCl (Sensorcaine-Mpf 0.25%) 10 ml .ROUTE .STK-MED ONE Stop: 05/12/20 00:01 Diphenhydramine HCl (Benadryl) 25 mg IVPUSH Q8H PRN PRN Reason: Itching Last Admin: 05/11/20 18:45 Dose: 25 mg Documented by: Ephedrine Sulfate (Ephedrine Sulfate) 5 mg IVPUSH ASDIRECTED PRN PRN Reason: Hypotension Fentanyl (Sublimaze) Confirm Administered Dose 100 mcg .ROUTE .STK-MED ONE Stop: 05/11/20 21:53 Last Admin: 05/11/20 21:56 Dose: 100 mcg Documented by: Fentanyl (Sublimaze) 100 mcg EPIDUR Q3H PRN PRN Reason: Pain Fentanyl/Bupivacaine HCl (Fentanyl/Bupivacaine/Ns 2 Mcg-0.125% 100 Ml) 100 ml EPIDUR ASDIRECTED [facility] Last Admin: 05/12/20 06:04 Dose: 100 ml Documented by: Oxytocin/Lactated Ringer's (Pitocin In Lr 10 Units/1,000 Ml) 10 unit in 1,000 mls @ 12 mls/hr IV TITRATE BLAKE; Protocol Last Titration: 05/12/20 02:15 Dose: 0 munits/min, 0 mls/hr Documented by: Vancomycin HCl 1 gm/ Sodium (Chloride) 250 mls @ 167 mls/hr IV Q12HR BLAKE Last Admin: 05/11/20 19:58 Dose: 167 mls/hr Documented by: Oxytocin/Lactated Ringer's (Pitocin In Lr 10 Units/1,000 Ml) 10 unit in 1,000 mls @ 500 mls/hr IV .CONTINUOUS BLAKE Lactated Ringer's (Ringers, Lactated) 1,000 mls @ 40 mls/hr IV ASDIRECTED [facility] Last Admin: 05/11/20 22:28 Dose: 40 mls/hr Documented by: Miscellaneous Medication (Phenylephrine 1 Mg/10 Ml-Ns) 0 mg IVPUSH ONETIME ONE Stop: 05/11/20 21:53 Last Admin: 05/12/20 04:10 Dose: Not Given Documented by: Nalbuphine HCl (Nubain) 10 mg IVPUSH Q2H PRN PRN Reason: Pain Ondansetron HCl (Zofran) 4 mg IVPUSH Q4H PRN PRN Reason: Nausea/Vomiting Ondansetron HCl (Zofran) 4 mg IVPUSH ONETIME PRN PRN Reason: Nausea/Vomiting Sertraline HCl (Zoloft) 50 mg PO ONETIME ONE Stop: 05/13/20 11:52 Last Admin: 05/13/20 13:21 Dose: 50 mg Documented by: Sodium Chloride (Saline Flush) 10 ml FLUSH ASDIRECTED PRN PRN Reason: Keep Vein Open - Interaction Infant Disposition, : [place] in Room with Family Interaction: Holding Infant Feeding: Attempted ; Nursed Fair/Poor Support Person: Significant Other - Recovery Exam Fundal Tone: Firm Fundal Level: 1 Fingerbreadths Below Umbilicus Fundal Placement: Midline Lochia Amount: Small Lochia Color: Rubra/Red Perineum Description: Intact, Minimal Bruising/Swelling Episiotomy/Laceration: None Bladder Status: Voiding Urinary Elimination: Voided - Exam General: Alert, Oriented, Cooperative GI/Abdominal Exam: Soft, Non-Tender Extremities: Normal Inspection Skin: Warm, Dry, Intact - Problem List & Annotations (1) 36 weeks gestation of SNOMED Code(s): 31574238 Code(s): Z3A.36 - 36 WEEKS GESTATION OF Status: Acute Current Visit: Yes (2) Abnormal test SNOMED Code(s): 590888739, 029741896 Code(s): O28.9 - UNSP ABNORMAL FINDINGS ON SCREENING OF MOTHER Status: Acute Current Visit: Yes (3) Mild preeclampsia SNOMED Code(s): 48876053 Code(s): O14.00 - MILD TO MODERATE PRE-ECLAMPSIA, UNSPECIFIED TRIMESTER Status: Acute Current Visit: Yes Qualifiers: Trimester: third trimester Qualified Code(s): O14.03 - Mild to moderate pre-eclampsia, third trimester (4) Gestational diabetes mellitus in , insulin controlled SNOMED Code(s): 27796980 Code(s): O24.414 - GESTATIONAL DIABETES IN , INSULIN CONTROLLED Status: Acute Current Visit: No (5) Group B Streptococcus carrier, +RV culture, currently SNOMED Code(s): 0305931785470, 954452868, 9500023957429 Code(s): O99.820 - STREPTOCOCCUS B CARRIER STATE COMPLICATING Status: Acute Current Visit: No (6) Vaginal delivery SNOMED Code(s): 346398268 Code(s): O80 - ENCOUNTER FOR FULL-TERM UNCOMPLICATED DELIVERY Status: Acute Current Visit: Yes - Problem List Review Problem List Initiated/Reviewed/Updated: Yes - My Orders Last 24 Hours: My Active Orders 05/13/20 07:45 Heat Therapy [OM.VOLODYMYR] PRN - Assessment Assessment:: PPD#2 - Plan Plan:: * Routine cares * Breast feeding * 2hr GTT at 6 weeks * BP's normal to mild range. Will need BP check within 1 week from discharge * Started on Zoloft yesterday for increasing anxiety. Will send Rx * Discharge home today
--- NOTE | 2020-05-14 06:49 | PCM.DCSUM1 ---
Discharge Summary - Discharge Data Discharge Date: 05/14/20 Discharge Disposition: Home, Self-Care 01 Condition: Good - Referral to Home Health Primary Care Physician: Henrietta Stevenson MD - Discharge Diagnosis/Problem(s) (1) 36 weeks gestation of SNOMED Code(s): 63996502 ICD Code: Z3A.36 - 36 WEEKS GESTATION OF Status: Acute Current Visit: Yes (2) Abnormal test SNOMED Code(s): 043394050, 778901250 ICD Code: O28.9 - UNSP ABNORMAL FINDINGS ON SCREENING OF MOTHER Status: Acute Current Visit: Yes (3) Mild preeclampsia SNOMED Code(s): 34744577 ICD Code: O14.00 - MILD TO MODERATE PRE-ECLAMPSIA, UNSPECIFIED TRIMESTER Status: Acute Current Visit: Yes Qualifiers: Trimester: third trimester Qualified Code(s): O14.03 - Mild to moderate pre-eclampsia, third trimester (4) Gestational diabetes mellitus in , insulin controlled SNOMED Code(s): 32216506 ICD Code: O24.414 - GESTATIONAL DIABETES IN , INSULIN CONTROLLED Status: Acute Current Visit: No (5) Group B Streptococcus carrier, +RV culture, currently SNOMED Code(s): 1994633282359, 793769747, 5999306264107 ICD Code: O99.820 - STREPTOCOCCUS B CARRIER STATE COMPLICATING Status: Acute Current Visit: No (6) Vaginal delivery SNOMED Code(s): 530146330 ICD Code: O80 - ENCOUNTER FOR FULL-TERM UNCOMPLICATED DELIVERY Status: Acute Current Visit: Yes - Patient Summary/Data Complications: None Consults: None Recommended Follow-up Testing/Procedures: Follow up in 1 week for BP check and 3 weeks for check Hospital Course: 29 y/o at 36 0/7 wks who presented for IOL after abnormal testing in clinic. Total testing of 06/20 for GODMA2. Induction done with pitocin and AROM. She progressed well to complete dilation and underwent an uncomplicated . See delivery note. did well and was discharged home on PPD#2 - Patient Instructions Diet: Regular Diet as Tolerated Activity: As Tolerated Activity, Other: Pelvic rest for 6 weeks Driving: May Drive Today Showering/Bathing: May Shower Showering/Bathing, Other: May Bathe Notify Provider of: Fever, Increased Pain, Swelling and Redness, Drainage, Nausea and/or Vomiting - Discharge Plan *PRESCRIPTION DRUG MONITORING PROGRAM REVIEWED*: No *COPY OF PRESCRIPTION DRUG MONITORING REPORT IN PATIENT BENJIE: No Prescriptions/Med Rec: Sertraline [Zoloft] 50 mg PO DAILY #30 tablet Home Medications: Home Meds Pnv No.95/Ferrous Fum/Folic AC [ Tablet] 1 tab PO DAILY 07/24/14 [History] Docusate Sodium [Colace] 100 mg PO BID PRN cap 05/13/20 [Rx] Ibuprofen [Motrin] 600 mg PO Q6H PRN tablet 05/13/20 [Rx] Sertraline [Zoloft] 50 mg PO DAILY #30 tablet 05/13/20 [Rx] Referrals: Henrietta Stevenson MD [Primary Care Provider] - (1 week for nurse only BP check 3 weeks for check) - Discharge Summary/Plan Comment DC Time >30 min.: No - Patient Data Vitals - Most Recent: Last Vital Signs Temp 36.8 C 05/14/20 04:29 Pulse 58 L 05/14/20 04:29 Resp 18 05/14/20 04:29 BP 149/98 H 05/14/20 04:51 Pulse Ox 98 05/14/20 04:29 Weight - Most Recent: 125.191 kg I&O - Last 24 hours: Intake & Output 05/13/20 05/13/20 05/14/20 14:59 22:59 06:59 Intake Total 120 120 Balance 120 120 Med Orders - Current: Current Medications Acetaminophen (Tylenol) 650 mg PO Q4H PRN PRN Reason: mild pain or fever Last Admin: 05/12/20 21:37 Dose: 650 mg Documented by: Benzocaine/Menthol (Dermoplast Pain Relief [place]) 0 gm TOP ASDIRECTED PRN PRN Reason: Perineal Comfort Measure Last Admin: 05/12/20 09:36 Dose: 1 can Documented by: Docusate Sodium (Colace) 100 mg PO BID PRN PRN Reason: Constipation Last Admin: 05/13/20 23:41 Dose: 100 mg Documented by: Ibuprofen (Motrin) 600 mg PO Q6H PRN PRN Reason: Mild pain or fever Last Admin: 05/13/20 23:40 Dose: 600 mg Documented by: Witch Marii (Tucks) 1 pad TOP ASDIRECTED PRN PRN Reason: Perineal Comfort Measure Last Admin: 05/12/20 09:36 Dose: 1 tub Documented by: Discontinued Medications Betamethasone Acet/Betameth SodPhos (Celestone Soluspan 6 Mg/Ml) 12 mg IM ONETIME ONE Stop: 05/11/20 18:23 Last Admin: 05/11/20 18:32 Dose: 12 mg Documented by: Bupivacaine HCl (Sensorcaine-Mpf 0.25%) 10 ml .ROUTE .STK-MED ONE Stop: 05/12/20 00:01 Diphenhydramine HCl (Benadryl) 25 mg IVPUSH Q8H PRN PRN Reason: Itching Last Admin: 05/11/20 18:45 Dose: 25 mg Documented by: Ephedrine Sulfate (Ephedrine Sulfate) 5 mg IVPUSH ASDIRECTED PRN PRN Reason: Hypotension Fentanyl (Sublimaze) Confirm Administered Dose 100 mcg .ROUTE .STK-MED ONE Stop: 05/11/20 21:53 Last Admin: 05/11/20 21:56 Dose: 100 mcg Documented by: Fentanyl (Sublimaze) 100 mcg EPIDUR Q3H PRN PRN Reason: Pain Fentanyl/Bupivacaine HCl (Fentanyl/Bupivacaine/Ns 2 Mcg-0.125% 100 Ml) 100 ml EPIDUR ASDIRECTED [facility] Last Admin: 05/12/20 06:04 Dose: 100 ml Documented by: Oxytocin/Lactated Ringer's (Pitocin In Lr 10 Units/1,000 Ml) 10 unit in 1,000 mls @ 12 mls/hr IV TITRATE BLAKE; Protocol Last Titration: 05/12/20 02:15 Dose: 0 munits/min, 0 mls/hr Documented by: Vancomycin HCl 1 gm/ Sodium (Chloride) 250 mls @ 167 mls/hr IV Q12HR BLAKE Last Admin: 05/11/20 19:58 Dose: 167 mls/hr Documented by: Oxytocin/Lactated Ringer's (Pitocin In Lr 10 Units/1,000 Ml) 10 unit in 1,000 mls @ 500 mls/hr IV .CONTINUOUS BLAKE Lactated Ringer's (Ringers, Lactated) 1,000 mls @ 40 mls/hr IV ASDIRECTED BLAKE Last Admin: 03/01/21 22:28 Dose: 40 mls/hr Documented by: Miscellaneous Medication (Phenylephrine 1 Mg/10 Ml-Ns) 0 mg IVPUSH ONETIME ONE Stop: 05/11/20 21:53 Last Admin: 05/12/20 04:10 Dose: Not Given Documented by: Nalbuphine HCl (Nubain) 10 mg IVPUSH Q2H PRN PRN Reason: Pain Ondansetron HCl (Zofran) 4 mg IVPUSH Q4H PRN PRN Reason: Nausea/Vomiting Ondansetron HCl (Zofran) 4 mg IVPUSH ONETIME PRN PRN Reason: Nausea/Vomiting Sertraline HCl (Zoloft) 50 mg PO ONETIME ONE Stop: 05/13/20 11:52 Last Admin: 05/13/20 13:21 Dose: 50 mg Documented by: Sodium Chloride (Saline Flush) 10 ml FLUSH ASDIRECTED PRN PRN Reason: Keep Vein Open
[2020-05-14 12:27] VITALS: BP 138/86; PULSE 64
== END 2020-05-14 12:55 | disposition home or self-care (01) | DRG 805 ==
LOC: JD.OBCHECK 18:02 → JD.OB 18:04 → JD.OBCHECK 18:17 → JD.OB 18:18 → OBSVTOIN 05-12 06:48 → JD.OB 05-12 07:33
PROVIDERS: ADMIT Obstetrics & Gynecology; ATTEND Obstetrics & Gynecology
PROC: 10E0XZZ Delivery of Products of Conception, External Approach (ICD-10-PCS; principal; 2020-05-12)
PROC: 10907ZC Drainage of Amniotic Fluid, Therapeutic from Products of Conception, Via Natural or Artificial Opening (ICD-10-PCS; 2020-05-12)
PROC: 3E033VJ Introduction of Other Hormone into Peripheral Vein, Percutaneous Approach (ICD-10-PCS; 2020-05-12)
PROC: 3E0R3BZ Introduction of Anesthetic Agent into Spinal Canal, Percutaneous Approach (ICD-10-PCS; 2020-05-12)
PROC: 00HU33Z Insertion of Infusion Device into Spinal Canal, Percutaneous Approach (ICD-10-PCS; 2020-05-12)
DX: O24.424 Gestational diabetes mellitus in childbirth, insulin controlled (principal); O60.14X0 Preterm labor third trimester with preterm delivery third trimester, not applicable or unspecified; Z37.0 Single live birth; O14.04 Mild to moderate pre-eclampsia, complicating childbirth; O69.81X0 Labor and delivery complicated by cord around neck, without compression, not applicable or unspecified; Z20.822 Contact with and (suspected) exposure to COVID-19; Z91.011 Allergy to milk products; Z91.010 Allergy to peanuts; Z88.1 Allergy status to other antibiotic agents; Z88.0 Allergy status to penicillin; Z88.2 Allergy status to sulfonamides; Z91.012 Allergy to eggs; Z79.4 Long term (current) use of insulin; Z90.49 Acquired absence of other specified parts of digestive tract; Z87.891 Personal history of nicotine dependence; Z3A.36 36 weeks gestation of pregnancy
CPT/HCPCS: 01967; 36415; 51702; 59025; 59409; 82565; 82570; 82962; 84156; 84450; 84460; 85027; 86592; 86850; 86900; 86901; A9270-GY; J0702; J1200; J2590; J3010; J3370; J3490; J7050; J7120; U0002

== ENCOUNTER 2020-06-24 14:10 | Emergency (ER) | payer MEDICAID ==
[2020-06-24 14:38] VITALS: BP 128/84; PULSE 94
[2020-06-24] MEDS ORDERED: Diphtheria/Tetanus Toxoids,Adult (Td) 0.5 ML Syringe IM ONE (14:41)
[2020-06-24] MEDS ORDERED: Lidocaine 1% 10 ML MDV INJECT ONE (14:42)
--- NOTE | 2020-06-24 14:48 | EDM.PDOC ---
ED HPI GENERAL MEDICAL PROBLEM - General Chief Complaint: Laceration Stated Complaint: RT HAND MIDDLE FINGER LAC Time Seen by Provider: 06/24/20 14:40 Source of Information: Reports: Patient History Limitations: Reports: No Limitations - History of Present Illness INITIAL COMMENTS - FREE TEXT/NARRATIVE: 29-year-old female presents the emergency department today with complaints of a laceration on the dorsal aspect of her right middle finger on the proximal phallynx. Laceration is 2.5 cm. Pt state that she was cutting pipe and sliced her finger. States that tetanus is not up to date, however she is allergic to the pertussis in the tDap. Right Middle Finger-Middle Pain Score (Numeric/FACES): 2 - Related Data Allergies Allergy/AdvReac Type Severity Reaction Status Date / Time azithromycin Allergy Severe Mouth Sores Verified 06/24/20 14:38 [From Zithromax Z-Gerardo] cephalexin Allergy Severe Redness Verified 06/24/20 14:38 milk Allergy Severe Other Verified 06/24/20 14:38 peanut Allergy Severe Other Verified 06/24/20 14:38 Penicillins Allergy Severe Facial Verified 06/24/20 14:38 Swelling Pertussis Vaccines Allergy Severe Cannot Verified 06/24/20 14:38 Remember Sulfa (Sulfonamide Allergy Severe Hives Verified 06/24/20 14:38 Antibiotics) cefaclor [From Ceclor] AdvReac Severe Joint Pain Verified 06/24/20 14:38 clarithromycin [From Biaxin] AdvReac Severe Nausea and Verified 06/24/20 14:38 Vomiting eggs Allergy Severe Other Uncoded 06/24/20 14:38 Home Meds: Home Meds Pnv No.95/Ferrous Fum/Folic AC [ Tablet] 1 tab PO DAILY 07/24/14 [History] Docusate Sodium [Colace] 100 mg PO BID PRN cap 05/13/20 [Rx] Ibuprofen [Motrin] 600 mg PO Q6H PRN tablet 05/13/20 [Rx] Sertraline [Zoloft] 50 mg PO DAILY #30 tablet 05/13/20 [Rx] Past Medical History - Past Health History Medical/Surgical History: Denies Medical/Surgical History Genitourinary History: Reports: Renal Calculus [employer] History: Reports: Endometriosis, Psychiatric History: Reports: Anxiety Endocrine/Metabolic History: Reports: Diabetes, Gestational - Past Surgical History HEENT Surgical History: Reports: Tonsillectomy GI Surgical History: Reports: Cholecystectomy Social & Family History - Family History Family Medical History: No Pertinent Family History - Caffeine Use Caffeine Use: Reports: None ED ROS GENERAL - Review of Systems Review Of Systems: Comprehensive ROS is negative, except as noted in HPI. ED EXAM, SKIN/RASH Exam: See Below Exam Limited By: No Limitations General Appearance: Alert, WD/WN, No Apparent Distress Ears: Normal External Exam, Hearing Grossly Normal Nose: Normal Inspection Throat/Mouth: Normal Inspection, Normal Lips, Normal Voice, No Airway Compromise Head: Atraumatic Neck: Normal Inspection Respiratory/Chest: No Respiratory Distress, No Accessory Muscle Use Cardiovascular: Normal Peripheral Pulses, Regular Rate, Rhythm GI/Abdominal: No Distention (Female) Exam: Deferred Rectal (Female) Exam: Deferred Back Exam: Normal Inspection Extremities: Normal Inspection Neurological: Alert, Oriented, Normal Cognition Psychiatric: Normal Affect, Normal Mood Skin: Warm, Dry, Normal Color, No Rash, Wound/Incision (2.5cm laceration to right dorsal middle finger) Location, Skin: Upper Extremity, Right Characteristics: Linear Lymphatic: No Adenopathy ED SKIN PROCEDURES - Laceration/Wound Repair Right Dorsal Digit - 3rd (Middle) Appearance: Superficial Distal NVT: Neuro & Vascular Intact Anesthetic Type: Local Local Anesthesia - Lidocaine (Xylocaine): 1% Plain Local Anesthetic Volume: 4cc Closed with: Sutures Lac/Wound length In cm: 2.5 Suture Size: 4-0 # of Sutures: 7 Suture Type: Nylon, Interrupted Course - Vital Signs Text/Narrative:: I spoke with pharmacy and you need to have tetanus and diphtheria IM injection. I have ordered this for the patient. It does not contain pertussis. Last Recorded V/S: Last Vital Signs Temp 98 F 06/24/20 14:32 Pulse 94 06/24/20 14:32 Resp 18 06/24/20 14:32 BP 128/84 06/24/20 14:32 Pulse Ox 96 06/24/20 14:32 - Orders/Labs/Meds Orders: Active Orders 24 hr Category Date Time Status Vaccines to be Administered [RC] PER UNIT ROUTINE Care 06/24/20 14:42 Active Meds: Medications Discontinued Medications Generic Name Dose Route Start Last Admin Trade Name Freq PRN Reason Stop Dose Admin Lidocaine HCl 10 ml 06/24/20 14:42 06/24/20 14:54 Lidocaine 1% 10 Ml Mdv INJECT 06/24/20 14:43 10 ml ONETIME ONE Administration Tetanus/Diphtheria Toxoids 0.5 ml 06/24/20 14:41 06/24/20 14:50 Diphtheria/Tetanus Toxoids,Adult (Td) 0.5 Ml Syringe IM 06/24/20 14:42 0.5 ml .ONCE ONE Administration Departure - Departure Time of Disposition: 15:22 Disposition: Home, Self-Care 01 Condition: Good Clinical Impression: Laceration - Discharge Information Instructions: Laceration Care, Adult, [id number] Referrals: Daniela Amanda MD [Primary Care Provider] - Forms: ED Department Discharge Additional Instructions: You were seen in the ED for a laceration of your middle finger on your right hand. Laceration was repaired with 7 sutures. These can be removed in 7-10 days time. Wash the laceration twice daily with mild soap and water and then pat dry. Apply bacitracin and a bandage. Watch for signs and symptoms of infection such as increased redness, swelling or pus draining from the wound. Your tetanus vaccine was updated today. Make note of this somewhere in your medical records. This is good for 10 years. Sepsis Event Note (ED) - Evaluation Sepsis Screening Result: No Definite Risk - Focused Exam Vital Signs: Vital Signs Temp Pulse Resp BP Pulse Ox 06/24/20 14:32 98 F 94 18 128/84 96 - My Orders Last 24 Hours: My Active Orders 06/24/20 14:42 Vaccines to be Administered [RC] PER UNIT ROUTINE - Assessment/Plan Last 24 Hours: My Active Orders 06/24/20 14:42 Vaccines to be Administered [RC] PER UNIT ROUTINE
== END 2020-06-24 16:05 | disposition home or self-care (01) ==
LOC: JD.ED 14:10
DX: S61.212A Laceration without foreign body of right middle finger without damage to nail, initial encounter (principal); Z88.1 Allergy status to other antibiotic agents; Z91.011 Allergy to milk products; Z91.010 Allergy to peanuts; Z88.0 Allergy status to penicillin; Z88.7 Allergy status to serum and vaccine; Z88.2 Allergy status to sulfonamides; Z91.012 Allergy to eggs; Z79.899 Other long term (current) drug therapy; Z23 Encounter for immunization; W26.8XXA Contact with other sharp object(s), not elsewhere classified, initial encounter
CPT/HCPCS: 12001; 90471; 90714; 99282; 99282-25

== ENCOUNTER 2021-05-31 20:36 | Emergency (ER) | payer MEDICAID ==
[2021-05-31] MEDS ORDERED: Ondansetron 4 MG/2 ML SDV IVPUSH ONE (21:08)
[2021-05-31] MEDS ORDERED: Sodium Chloride 0.9% 10 ML Syringe FLUSH PRN (21:08)
[2021-05-31] MEDS ORDERED: HYDROmorphone 1 MG/ML Syringe IVPUSH ONE (21:09)
[2021-05-31] MEDS ORDERED: Ketorolac 30 MG/ML SDV IVPUSH ONE (21:09)
[2021-05-31] MEDS ORDERED: Sodium Chloride 0.9% 1,000 ML IV SCH (21:15)
[2021-05-31 21:59] VITALS: BP 155/82; PULSE 106
== END 2021-05-31 23:17 | disposition home or self-care (01) ==
LOC: JD.ED 20:36
DX: R10.31 Right lower quadrant pain (principal); Z88.0 Allergy status to penicillin; Z88.2 Allergy status to sulfonamides; Z91.012 Allergy to eggs; Z88.1 Allergy status to other antibiotic agents; Z88.7 Allergy status to serum and vaccine; Z91.011 Allergy to milk products; Z91.010 Allergy to peanuts
CPT/HCPCS: 36415; 74176; 80053; 81001; 83690; 84703; 85025; 96374; 96375; 99284; J1170; J1885; J2405; J7030; 99285

== ENCOUNTER 2022-05-09 07:36 | Emergency (ER) | payer MEDICAID ==
[2022-05-09] MEDS ORDERED: Ondansetron 4 MG/2 ML SDV IVPUSH ONE (08:25)
[2022-05-09] MEDS ORDERED: Sodium Chloride 0.9% 10 ML Syringe FLUSH PRN (08:25)
[2022-05-09] MEDS ORDERED: Levofloxacin/Dextrose 5%-Water 500 MG in Premix Bag 1 BAG IV ONE (08:29)
[2022-05-09] MEDS ORDERED: HYDROmorphone 1 MG/ML Syringe IVPUSH ONE (09:56)
[2022-05-09 14:39] VITALS: BP 136/93; PULSE 99
== END 2022-05-09 14:34 | disposition home or self-care (01) ==
LOC: JD.ED 07:36 → SUPCPDRO 07:36 → JD.ED 14:34
DX: H66.012 Acute suppurative otitis media with spontaneous rupture of ear drum, left ear (principal); H60.502 Unspecified acute noninfective otitis externa, left ear; H70.92 Unspecified mastoiditis, left ear; Z72.0 Tobacco use; Z88.1 Allergy status to other antibiotic agents; Z91.011 Allergy to milk products; Z91.010 Allergy to peanuts; Z88.0 Allergy status to penicillin; Z88.7 Allergy status to serum and vaccine; Z88.2 Allergy status to sulfonamides; Z91.012 Allergy to eggs; Z79.899 Other long term (current) drug therapy
CPT/HCPCS: 36415; 70450; 80053; 85025; 86140; 96365; 96366; 96375; 99283; J1170; J1956; J2405; J3490; 99284